=== PATIENT | male | born 1965 | race African-American/Black ===

== ENCOUNTER 2021-04-04 22:31 | Emergency (ER) | payer OTHER ==
[~2021-04-04] VITALS: Ht 185.4 cm; Wt 69.0 kg
[2021-04-05] MEDS ORDERED: HYDROCODONE/ACETAMINOPHEN 5/325MG TABLET PO ONE (01:00)
[2021-04-05 02:40] VITALS: BP 136/87
== END 2021-04-05 03:00 ==
LOC: ER 22:31
DX: S62.304A Unspecified fracture of fourth metacarpal bone, right hand, initial encounter for closed fracture (principal); S00.03XA Contusion of scalp, initial encounter; Y04.0XXA Assault by unarmed brawl or fight, initial encounter; Y93.89 Activity, other specified; Y92.488 Other paved roadways as the place of occurrence of the external cause
CPT/HCPCS: 29125; 73030; 73070; 73130; 99284